=== PATIENT | male | born 1970 | race Caucasian/White ===

== ENCOUNTER → 2016-09-03 | Outpatient (CLI) | payer BC ==
--- NOTE | 2016-09-03 11:35 | REP ---
LEFT WRIST COMPLETE: 09/03/2016. Clinical history: Contusion, pain. Four views of the wrist show some soft tissue swelling distal forearm and dorsal wrist. Distal radius and ulna intact. Radiocarpal articulations unremarkable. The metacarpals and visualized MCP joints intact. The carpal articulations were unremarkable. I do not see any definite avulsion fracture. Impression: 1. Soft tissue swelling distal forearm and wrist dorsally without visible displaced fracture or avulsion. Signed by Walker Campbell MD 09/03/2016 07:34 P
--- NOTE | 2016-09-03 11:36 | REP ---
LEFT ELBOW SERIES COMPLETE: 09/03/2016. Comparison x-ray 09/16/2014, MRI of elbow 11/06/2015. Findings: Four views show no evidence of a joint effusion. The radial head and capitellum align normally without radial head fracture. Olecranon and proximal ulna intact. Distal humerus without supracondylar fracture. No abnormal soft-tissue calcification to suggest epicondylitis. No triceps avulsion. Impression: 1. No visible or displaced fracture, avulsion, joint effusion or other acute bony finding about the elbow. Signed by Walker Campbell MD 09/03/2016 07:34 P
== END ==
LOC: M ADAMS 08:55
PROVIDERS: ATTEND Physician Assistant Medical
DX: S50.02XA Contusion of left elbow, initial encounter (principal); S60.212A Contusion of left wrist, initial encounter; M25.432 Effusion, left wrist; X58.XXXA Exposure to other specified factors, initial encounter; Y93.9 Activity, unspecified; Y92.9 Unspecified place or not applicable; Y99.8 Other external cause status

== ENCOUNTER → 2016-10-26 | Outpatient (CLI) | payer BC ==
--- NOTE | 2016-10-26 11:52 | REP ---
TWO CHEST: COMPARISON: No comparison. There is no evidence of acute infiltrate. No pleural effusion is seen. The heart is normal in size. The mediastinal silhouette is unremarkable. The visualized osseous structures are intact. IMPRESSION: No acute pulmonary disease. Signed by Beny Corbett MD 10/26/2016 12:17 P
== END ==
LOC: M ADAMS 10:59
PROVIDERS: ATTEND Physician Assistant
DX: R05 Cough (principal)

== ENCOUNTER → 2017-12-19 | Outpatient (REF) | payer BC, OTHER ==
[2017-12-19 19:33] LABS: TESTOSTERONE 738 NG/DL (241-827)
== END ==
LOC: M LAB REF 17:37
DX: E29.1 Testicular hypofunction (principal)
CPT/HCPCS: 84403

== ENCOUNTER → 2018-01-10 | Outpatient (REF) | payer BC, OTHER ==
[2018-01-10 18:03] LABS: URIC ACID 6.5 MG/DL (3.5-7.2)
== END ==
LOC: M LAB REF 17:22
DX: M10.071 Idiopathic gout, right ankle and foot (principal)
CPT/HCPCS: 84550

== ENCOUNTER → 2018-06-21 | Outpatient (REF) | payer BC ==
[2018-06-21 18:31] LABS: TESTOSTERONE 219 NG/DL (241-827)
== END ==
LOC: M LAB REF 16:47
DX: E29.1 Testicular hypofunction (principal)
CPT/HCPCS: 84403

== ENCOUNTER → 2018-08-26 | Outpatient (CLI) | payer BC ==
--- NOTE | 2018-08-26 13:45 | REP ---
Clinical: Pain. Technique: AP and lateral views of the left tibia / fibula. Findings: Age-related changes to the knee and ankle joint. No acute fracture dislocation. Surrounding soft tissues are unremarkable. Impression: No acute fracture dislocation. No obvious pathology. Electronically Signed by Jaspal Parker MD 08/26/2018 01:36 P
--- NOTE | 2018-08-26 13:46 | REP ---
Clinical: Pain Technique: AP, lateral, bilateral oblique views left foot . Findings: The osseous structures and joint spaces are intact and essentially normal for age. There is no evidence for acute fracture or dislocation. Surrounding soft tissues are unremarkable. No subcutaneous emphysema or radiodense foreign body. Small calcaneal heal spur. Impression: No obvious acute pathology by radiographic evaluation. Electronically Signed by Jaspal Parker MD 08/26/2018 01:38 P
== END ==
LOC: M ADAMS 12:34
PROVIDERS: ATTEND Physician Assistant
DX: M79.662 Pain in left lower leg (principal); M79.672 Pain in left foot

== ENCOUNTER 2019-05-26 14:23 | Emergency (ER) | payer OTHER, BC ==
[~2019-05-26] VITALS: Ht 182.9 cm; Wt 135.6 kg
[2019-05-26] MEDS ORDERED: BUPR150T3 (14:31)
[2019-05-26] MEDS ORDERED: ESCI20TA (14:31)
[2019-05-26] MEDS ORDERED: VITA500045 (14:31)
[2019-05-26] MEDS ORDERED: IBUPROFEN 600 MG TAB PO ONE (15:15)
--- NOTE | 2019-05-26 15:46 | REP ---
Clinical: Pain. Trauma. Technique: Internal rotation, external rotation, and Y view right shoulder . Findings: No acute fracture or dislocation. The acromioclavicular and glenohumeral joints are intact. No periarticular calcifications or degenerative changes are appreciated. Sub acromial space is normal. Surrounding soft tissues are unremarkable. Impression: Normal right shoulder radiographs. Electronically Signed by Jaspal Parker MD 05/26/2019 03:37 P
[2019-05-26 16:12] VITALS: BP 132/82
== END 2019-05-26 16:24 | disposition home or self-care (01) ==
LOC: M ED 14:23
DX: S46.811A Strain of other muscles, fascia and tendons at shoulder and upper arm level, right arm, initial encounter (principal); X50.0XXA Overexertion from strenuous movement or load, initial encounter; Y92.89 Other specified places as the place of occurrence of the external cause; Y99.0 Civilian activity done for income or pay; F41.9 Anxiety disorder, unspecified; F32.9 Major depressive disorder, single episode, unspecified; Z79.899 Other long term (current) drug therapy

== ENCOUNTER 2019-08-14 13:18 | Day surgery (SDC) | payer OTHER ==
[~2019-08-14] VITALS: Ht 182.9 cm; Wt 137.5 kg
[~2019-08-14 13:18] MED LIST: BUPR150T3 PO; D 202000 PO; ESCI20TA PO; LR 1,000 ML IV ONE; TEST30SO3 TOP; VITA500045; VITA50005 PO; ceFAZolin SOD 2 GM in IV 1 EA IV ONE
[2019-08-14] MEDS ORDERED: dexameTHASONE 4 MG/ML 1ML VIAL (J1100) As Ordered ONE (16:52)
[2019-08-14] MEDS ORDERED: propofoL 200 MG/20 ML VIAL As Ordered ONE ×2 (16:52→19:38)
[2019-08-14] MEDS ORDERED: ONDANSETRON 4MG/2ML VIAL (J2405) As Ordered ONE (16:52)
[2019-08-14] MEDS ORDERED: SUGAMMADEX SODIUM 500 MG/5 ML VIAL (BRIDION) As Ordered ONE (16:52)
[2019-08-14] MEDS ORDERED: LIDOCAINE 2% INJ 100 MG/5 ML SDV (FOR ANES.) As Ordered ONE (16:52)
[2019-08-14] MEDS ORDERED: ROCURONIUM BROMIDE 50 MG/5 ML VIAL As Ordered ONE (16:52)
[2019-08-14] MEDS ORDERED: MIDAZOLAM INJ 2 MG/2 ML VIAL (J2250) As Ordered ONE ×2 (16:53→17:04)
[2019-08-14] MEDS ORDERED: fentaNYL 100 MCG/2 ML INJECTION (J3010) As Ordered ONE ×2 (16:53→17:04)
[2019-08-14] MEDS: fentaNYL 100 MCG/2 ML INJECTION (J3010) IV SCH ×2 (17:16→18:07)
[2019-08-14] MEDS: MIDAZOLAM INJ 2 MG/2 ML VIAL (J2250) IV SCH ×2 (17:16→17:19)
[2019-08-14] MEDS ORDERED: LIDOCAINE 1% SDV INJ 30 ML VIAL As Ordered ONE (17:43)
[2019-08-14] MEDS ORDERED: EPINEPHrine 1MG/ML INJ 30ML MD-VIAL As Ordered ONE (17:43)
[2019-08-14] MEDS ORDERED: fentaNYL 100 MCG/2 ML INJECTION (J3010) IV PRN ×2 (17:45→20:45)
[2019-08-14] MEDS ORDERED: ONDANSETRON 4MG/2ML VIAL (J2405) IV PRN ×2 (17:45→20:45)
[2019-08-14] MEDS ORDERED: METOCLOPRAMIDE INJ 10MG/2ML VIAL (J2765) IV PRN ×2 (17:45→20:45)
[2019-08-14] MEDS ORDERED: LR 1,000 ML IV SCH ×2 (17:45→20:45)
[2019-08-14] MEDS ORDERED: oxyCODONE 5MG TAB PO PRN ×2 (18:00)
[2019-08-14] MEDS ORDERED: ACETAMINOPHEN 1000MG 100ML IV BTL (OFIRMEV) (J0131 PER 10MG) As Ordered ONE (18:56)
[2019-08-14] MEDS ORDERED: MEPERIDINE INJ 25 MG/ML VIAL (J2175) IV PRN (20:45)
[2019-08-14] MEDS ORDERED: PERCOCET 5MG/325MG TAB PO PRN (20:45)
[2019-08-14 22:09] VITALS: BP 120/76
--- NOTE | 2019-08-14 22:50 | RO ---
DATE OF PROCEDURE: 08/14/2019 PREOPERATIVE DIAGNOSIS: Right partial thickness rotator cuff tear and superior labral tear from anterior to posterior (SLAP). POSTOPERATIVE DIAGNOSIS: Full thickness rotator cuff tear, SLAP. PROCEDURE: Right biceps tenodesis, acromioplasty, shoulder arthroscopy, distal clavicle excision, and rotator cuff repair. Loose body removal. SURGEON: Louis Wright MD NURSERYPERSON: LIYAH More, who was essential for suture management throughout the case and assistance in camera holding. ANESTHESIA: General. PREOPERATIVE ANTIBIOTICS: 2 grams of Ancef. ESTIMATED BLOOD LOSS: Minimal. COMPLICATIONS: None. INDICATION: This is a 49-year-old male that suffered traumatic injury and since that time has failed nonoperative modes of treatment. We discussed the risks and benefits of shoulder arthroscopy including but not limited to infection, damage to underlying structures, incomplete relief and patient wished to proceed. DESCRIPTION OF PROCEDURE: Patient was brought back to OR in the supine position and underwent general anesthesia, at which point the patient was placed in the beach chair position. Right arm was prepped and draped in the usual fashion. We had a time-out confirming site, side and surgery. Once in agreement, we made a stab incision in the posterior shoulder for the posterior feeding portal. Once we entered the glenohumeral joint we established our anterior portal and used a 7 x 7 flexible cannula. We then evaluated the SLAP tear, it had complete lifting of the labrum off the glenoid and irrigation of the biceps tendon itself. At that point, we used a FiberLink suture to tag the biceps tendon and used the burner to separate the bicep long head from the labrum. We then used the shaver to debride the labrum. 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 We evaluated the rotator cuff at this point, did not identify a full thickness tear, but did identify some fraying of the undersurface of the leading edge of the rotator cuff. It was at this point we encountered loose bodies within the joint. These were removed by a combination of grasper and shaver. At this point we used four or five [place] and did a biceps tenodesis at the proximal extent of the bicipital groove after prepping the area with curettes, burner and shaver. We then went into the subacromial space, the synovial debridement, did acromioplasty utilizing a burner and power rasp. At that point we also established our anterior portal in the subacromial space and did distal clavicle excision utilizing those tools, approximately 1.1 cm. We then evaluated the rotator cuff. At this point we identified small tear approximately 1 cm in the anterior leading edge. It was high grade partial thickness. We completed the tear. We then used a medial anchor with FiberTape after prepping the area with burner, shaver and curette. We passed both anterior and posterior limbs. We then did one lateral anchor under tension. Lateral repair was quite secure. We were very happy with this, so at this point we just debrided a little further utilizing shaver at which point we removed any of the fluid and closed the portals, we had an anterior, posterior and a lateral portal with #3-0 nylon. The patient was then awakened and taken to post anesthesia care unit (PACU) in stable condition. POSTOPERATIVE PLAN: The patient will work on pain control. Will see him at 2 week visit to work on subtle hand range of motion as this was a small tear. Will avoid any hyperlifting, but we progress him a little quicker with gentle active and active assisted range of motion.
--- NOTE | 2019-08-15 07:37 | ECGEPIP ---
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
== END 2019-08-14 22:40 | disposition home or self-care (01) ==
LOC: M SDC 13:18
PROVIDERS: ATTEND Orthopaedic Surgery Hand Surgery
DX: M75.111 Incomplete rotator cuff tear or rupture of right shoulder, not specified as traumatic (principal); S43.431A Superior glenoid labrum lesion of right shoulder, initial encounter; M10.9 Gout, unspecified; F41.9 Anxiety disorder, unspecified; F32.9 Major depressive disorder, single episode, unspecified; J45.909 Unspecified asthma, uncomplicated; G47.30 Sleep apnea, unspecified; Z87.891 Personal history of nicotine dependence; Y93.9 Activity, unspecified
CPT/HCPCS: 29823; 29824; 29826; 29827; 64415; 93005; C1713; J0131; J0690; J1100; J2250; J2405; J3010

== ENCOUNTER → 2020-05-12 | Outpatient (REF) | payer BC ==
[~2020-05-12] MED LIST changes: -LR 1,000 ML IV ONE; -ceFAZolin SOD 2 GM in IV 1 EA IV ONE
== END ==
LOC: M LAB REF 16:19
PROVIDERS: ATTEND Nurse Practitioner Adult Health
DX: E29.1 Testicular hypofunction (principal)

== ENCOUNTER → 2020-05-26 | Outpatient (REF) | payer BC | LOC: M LAB REF 11:39 | PROVIDERS: ATTEND Internal Medicine | DX: R73.09 Other abnormal glucose (principal) ==

== ENCOUNTER → 2020-11-13 | Outpatient (REF) | payer BC ==
[~2020-11-13] MED LIST changes: +BUPR150T12 PO; -BUPR150T3 PO; -ESCI20TA PO; +ESCI20TA16 PO
[2020-11-13 19:15] LABS: H PYLORI QUALITATIVE IgG NEGATIVE (NEGATIVE)
== END ==
LOC: M LAB REF 16:30
PROVIDERS: ATTEND Nurse Practitioner Adult Health
DX: R14.0 Abdominal distension (gaseous) (principal)

== ENCOUNTER → 2020-12-16 | Outpatient (REF) | payer BC ==
[2020-12-16 13:43] LABS: FREE T3 3.1 PG/ML (2.2-4.0)
[2020-12-16 13:51] LABS: THYROID PEROXIDASE ANTIBODY 367.9 U/ML (<60.0)
[2020-12-17 08:09] LABS: THRYOGLOBULIN ANTIBODIES (ATA) < 1.0 IU/mL (0.0-0.9); THYROGLOBULIN QUANTITATIVE 14.3 ng/mL (1.4-29.2)
== END ==
LOC: M LAB REF 12:15
PROVIDERS: ATTEND Nurse Practitioner Adult Health
DX: R94.6 Abnormal results of thyroid function studies (principal)

== ENCOUNTER → 2021-10-20 | Outpatient (CLI) | payer BC ==
[~2021-10-20] MED LIST changes: +ERGO500029 PO; -VITA50005 PO
== END ==
LOC: M LABSMTC 09:04
PROVIDERS: ATTEND Orthopaedic Surgery
DX: Z11.52 Encounter for screening for COVID-19 (principal)

== ENCOUNTER 2022-03-11 22:29 | Inpatient (IN) | payer BC ==
[~2022-03-11] VITALS: Ht 182.9 cm; Wt 127.3 kg
[2022-03-11] MEDS ORDERED: MORPHINE 4 MG/ML 1ML VIAL/SYRINGE IV ONE (23:45)
[2022-03-11] MEDS ORDERED: ONDANSETRON 4MG 2ML VIAL IV ONE (23:45)
[2022-03-11] MEDS ORDERED: NS 1,000 ML IV ONE (23:45)
[2022-03-12 00:20] LABS: BASO # 0.1 10^3/uL (0.0-0.2); BASO % 0.5 % (0.0-1.0); EOS # 0.1 10^3/uL (0.0-0.5); EOS % 1.3 % (0.0-3.0); HEMATOCRIT 45.9 % (42.0-52.0); HEMOGLOBIN 15.9 g/dl (13.5-17.5); LYMPH # 2.4 10^3/uL (1.5-5.0); LYMPH % 21.4 % (24.0-44.0); MEAN CORPUSCULAR HEMOGLOBIN 31.7 pg (27.0-33.0); MEAN CORPUSCULAR HGB CONC 34.6 g/dl (32.0-36.5); MEAN CORPUSCULAR VOLUME 91.4 fl (80.0-96.0); MONO # 0.9 10^3/uL (0.0-0.8); MONO % 7.9 % (2.0-8.0); NEUTROPHILS # 7.5 10^3/uL (1.5-8.5); NEUTROPHILS % 68.4 % (36.0-66.0); PLATELET COUNT, AUTOMATED 212 10^3/uL (150-450); RED BLOOD COUNT 5.02 10^6/uL (4.30-6.10)
[2022-03-12 00:48] LABS: ALBUMIN 3.8 GM/DL (3.2-5.2); ALT/SGPT 40 U/L (12-78); BILIRUBIN,TOTAL 1.6 MG/DL (0.2-1.0); BLOOD UREA NITROGEN 17 MG/DL (7-18); CALCIUM LEVEL 9.1 MG/DL (8.5-10.1); CARBON DIOXIDE LEVEL 25 MEQ/L (21-32); CHLORIDE LEVEL 106 MEQ/L (98-107); CREATININE FOR GFR 1.09 MG/DL (0.70-1.30); GLOMERULAR FILTRATION RATE > 60.0 (>56); GLUCOSE, FASTING 120 MG/DL (70-100); LIPASE 168 U/L (73-393); POTASSIUM SERUM 3.9 MEQ/L (3.5-5.1); SODIUM LEVEL 138 MEQ/L (136-145); TOTAL PROTEIN 7.4 GM/DL (6.4-8.2)
[2022-03-12 00:51] LABS: CK-MB VALUE MASS < 1.0 NG/ML (<3.6); CPK CREATINE PHOSPHOKINASE 121 U/L (39-308); MB/CK RELATIVE INDEX 0.83 (< OR =4)
[2022-03-12] MEDS ORDERED: PIPERACILLIN/TAZOBACTAM SOD 4.5 GM in D5W MINI-BAG PLUS 50 ML IV ONE (01:10)
[2022-03-12 02:09] LABS: RSV AMPLIFICATION NEGATIVE (NEGATIVE)
[2022-03-12] MEDS ORDERED: FAMO40TA3 PO (03:32)
[2022-03-12] MEDS ORDERED: LEXA1TAB2 PO (03:32)
[2022-03-12] MEDS ORDERED: SYNT50TA PO (03:32)
[2022-03-12] MEDS ORDERED: ALPR0.25 PO (03:32)
[2022-03-12] MEDS ORDERED: ALBU8.5H INH (03:32)
[2022-03-12] MEDS ORDERED: IBUP200C28 PO (03:32)
[2022-03-12] MEDS: MORPHINE 4 MG/ML 1ML VIAL/SYRINGE IV PRN ×5 (03:35→20:41)
[2022-03-12] MEDS ORDERED: HOME MED LIST COMPLETE! XX SCH (03:35)
[2022-03-12] MEDS ORDERED: ALPRAZolam 0.25 MG TAB PO PRN (04:15)
[2022-03-12] MEDS ORDERED: ALBUTEROL 90 MCG/ACT 8GM HFA INHALER INH PRN (04:15)
[2022-03-12 04:23] VITALS: BP 152/79
[2022-03-12] MEDS: LEVOTHYROXINE 50MCG TABLET (0.05MG) PO SCH (05:48)
[2022-03-12] MEDS: NS 1,000 ML IV SCH ×4 (05:48→23:48)
[2022-03-12] MEDS: PANTOPRAZOLE 40MG VIAL IV SCH (08:17)
[2022-03-12] MEDS: HEPARIN SOD (PORCINE) 5000UNITS/ML 1ML VIAL/SYRINGE SC SCH ×2 (08:17→20:40)
[2022-03-12] MEDS: buPROPion **XL** TABLET 150MG (WELLBUTRIN XL) PO SCH (08:18)
[2022-03-12] MEDS: ESCITALOPRAM OXALATE 10 MG TAB (LEXAPRO) PO SCH (08:18)
[2022-03-12 08:32] LABS: ALBUMIN 3.5 GM/DL (3.2-5.2); ALT/SGPT 34 U/L (12-78); BILIRUBIN,TOTAL 2.8 MG/DL (0.2-1.0); BLOOD UREA NITROGEN 15 MG/DL (7-18); CALCIUM LEVEL 8.1 MG/DL (8.5-10.1); CARBON DIOXIDE LEVEL 25 MEQ/L (21-32); CHLORIDE LEVEL 106 MEQ/L (98-107); GLOMERULAR FILTRATION RATE > 60.0 (>56); GLUCOSE, FASTING 116 MG/DL (70-100); POTASSIUM SERUM 4.2 MEQ/L (3.5-5.1); SODIUM LEVEL 135 MEQ/L (136-145); TOTAL PROTEIN 6.6 GM/DL (6.4-8.2)
[2022-03-12 10:18] LABS: BILIRUBIN,DIRECT 0.4 MG/DL (0.0-0.2)
[2022-03-12 14:00] VITALS: BP 113/69
[2022-03-12 21:56] VITALS: BP 119/72
[2022-03-13] MEDS: MORPHINE 4 MG/ML 1ML VIAL/SYRINGE IV PRN ×2 (00:46→05:28)
[2022-03-13] MEDS: LEVOTHYROXINE 50MCG TABLET (0.05MG) PO SCH (05:21)
[2022-03-13 06:00] VITALS: BP 118/74
[2022-03-13] MEDS ORDERED: HYDROMORPHONE HCL 0.5 MG/ 0.5 ML SYRINGE (J1170 PER 1) IV ONE (07:35)
[2022-03-13] MEDS ORDERED: KETOROLAC 30 MG/ML 1ML VIAL IV ONE (07:35)
[2022-03-13] MEDS ORDERED: METOCLOPRAMIDE INJ 10MG/2ML VIAL (J2765 PER 1) IV ONE (07:35)
[2022-03-13 07:48] LABS: BASO # 0.1 10^3/uL (0.0-0.2); BASO % 0.8 % (0.0-1.0); EOS # 0.2 10^3/uL (0.0-0.5); EOS % 2.2 % (0.0-3.0); HEMATOCRIT 44.2 % (42.0-52.0); HEMOGLOBIN 14.6 g/dl (13.5-17.5); LYMPH # 1.9 10^3/uL (1.5-5.0); LYMPH % 26.3 % (24.0-44.0); MEAN CORPUSCULAR HEMOGLOBIN 31.1 pg (27.0-33.0); MEAN CORPUSCULAR VOLUME 94.2 fl (80.0-96.0); MONO # 0.6 10^3/uL (0.0-0.8); MONO % 8.6 % (2.0-8.0); NEUTROPHILS # 4.5 10^3/uL (1.5-8.5); NEUTROPHILS % 61.7 % (36.0-66.0); PLATELET COUNT, AUTOMATED 168 10^3/uL (150-450); RED BLOOD COUNT 4.69 10^6/uL (4.30-6.10); WHITE BLOOD COUNT 7.2 10^3/uL (4.0-10.0)
[2022-03-13] MEDS ORDERED: NS 500 ML IV ONE (08:00)
[2022-03-13] MEDS: buPROPion **XL** TABLET 150MG (WELLBUTRIN XL) PO SCH (08:04)
[2022-03-13] MEDS: ESCITALOPRAM OXALATE 10 MG TAB (LEXAPRO) PO SCH (08:04)
[2022-03-13 08:09] LABS: ERYTHROCYTE SEDIMENTATION RATE 21 mm/hr (0-20)
[2022-03-13 08:27] LABS: ALBUMIN 3.4 GM/DL (3.2-5.2); ALT/SGPT 31 U/L (12-78); AMYLASE 35 U/L (25-115); BILIRUBIN,TOTAL 2.9 MG/DL (0.2-1.0); BLOOD UREA NITROGEN 10 MG/DL (7-18); C REACTIVE PROTEIN QUANTITATIV 7.71 MG/DL (0.00-0.30); CALCIUM LEVEL 8.6 MG/DL (8.5-10.1); CARBON DIOXIDE LEVEL 28 MEQ/L (21-32); CHLORIDE LEVEL 104 MEQ/L (98-107); CREATININE FOR GFR 1.03 MG/DL (0.70-1.30); GLOMERULAR FILTRATION RATE > 60.0 (>56); GLUCOSE, FASTING 111 MG/DL (70-100); LIPASE 152 U/L (73-393); SODIUM LEVEL 135 MEQ/L (136-145); TOTAL PROTEIN 6.3 GM/DL (6.4-8.2)
[2022-03-13] MEDS ORDERED: KCL 10MEQ IN D5/0.45NS 1000ML 1,000 ML IV SCH (09:00)
[2022-03-13] MEDS: PANTOPRAZOLE 40MG VIAL IV SCH (09:48)
[2022-03-13 10:45] VITALS: BP 124/73
[2022-03-13] MEDS ORDERED: INDOCYANINE GREEN 25MG VIAL (IC-GREEN) As Ordered ONE (11:39)
[2022-03-13] MEDS ORDERED: LIDOCAINE 1% SDV 30ML VIAL As Ordered ONE (11:40)
[2022-03-13] MEDS ORDERED: BUPIVACAINE HCL 0.25% 30ML VIAL As Ordered ONE (11:40)
[2022-03-13] MEDS ORDERED: UNASYN 3GM VIAL As Ordered ONE (12:13)
[2022-03-13] MEDS ORDERED: ePHEDrine SULFATE 25 MG/5 ML(5MG/ML) SYRINGE As Ordered ONE (12:22)
[2022-03-13] MEDS ORDERED: ACETAMINOPHEN 1000MG 100ML IV BTL (OFIRMEV) (J0131 PER 10MG) As Ordered ONE (12:24)
[2022-03-13] MEDS ORDERED: GLYCOPYRROLATE INJ 0.2 MG/ML 2 ML VIAL As Ordered ONE (12:28)
[2022-03-13] MEDS ORDERED: ROCURONIUM BROMIDE 50 MG/5 ML VIAL As Ordered ONE ×2 (12:33→12:41)
[2022-03-13] MEDS ORDERED: MIDAZOLAM INJ 2MG/2ML VIAL (J2250 PER 1MG) As Ordered ONE (12:41)
[2022-03-13] MEDS ORDERED: METOCLOPRAMIDE INJ 10MG/2ML VIAL (J2765 PER 1) As Ordered ONE (12:41)
[2022-03-13] MEDS ORDERED: ONDANSETRON 4MG 2ML VIAL As Ordered ONE (12:41)
[2022-03-13] MEDS ORDERED: KETOROLAC 60MG 2ML VIAL As Ordered ONE (12:41)
[2022-03-13] MEDS ORDERED: dexameTHASONE 4 MG/ML 1ML VIAL (J1100 PER 1MG) As Ordered ONE (12:41)
[2022-03-13] MEDS ORDERED: propofoL 200 MG/20 ML VIAL As Ordered ONE ×2 (12:41→13:24)
[2022-03-13] MEDS ORDERED: fentaNYL 250 MCG/5 ML INJECTION As Ordered ONE (12:41)
[2022-03-13] MEDS ORDERED: LIDOCAINE 2% 100MG/5ML SDV (FOR ANES.) As Ordered ONE (12:41)
[2022-03-13] MEDS ORDERED: SUGAMMADEX SODIUM 500 MG/5 ML VIAL (BRIDION) As Ordered ONE (13:24)
[2022-03-13] MEDS ORDERED: oxyCODONE 5MG TAB PO PRN (14:20)
[2022-03-13] MEDS ORDERED: fentaNYL 100 MCG/2 ML INJECTION IV PRN (14:20)
[2022-03-13] MEDS ORDERED: LR 1,000 ML IV SCH (14:20)
[2022-03-13] MEDS ORDERED: ONDANSETRON 4MG 2ML VIAL IV PRN (14:20)
[2022-03-13] MEDS ORDERED: MORPHINE 2 MG/ML 1ML VIAL IV PRN (14:20)
[2022-03-13 15:45] VITALS: BP 128/79
[2022-03-13] MEDS ORDERED: SENOKOT S TAB PO PRN (16:10)
[2022-03-13] MEDS ORDERED: NORCO, ANEXSIA 5/325MG TABLET (HYDROcodone/ACETAMINOPHEN) PO PRN ×2 (16:10)
[2022-03-13] MEDS ORDERED: MORPHINE 4 MG/ML 1ML VIAL/SYRINGE IV PRN (16:10)
[2022-03-13] MEDS ORDERED: MOM 30ML SUSPENSION UDC PO PRN (16:10)
[2022-03-13] MEDS ORDERED: BISACODYL 5 MG TAB PO PRN (16:10)
[2022-03-13 17:15] VITALS: BP 123/54
[2022-03-13] MEDS: LACTOBACILLUS ACIDOPHILUS CAP (BACID) PO SCH (17:17)
[2022-03-13] MEDS: NS 1,000 ML IV SCH (17:17)
[2022-03-13] MEDS: AMPICILLIN SOD/SULBACTAM SOD 3 GM in D5W MINI-BAG PLUS 100 ML IV SCH (17:17)
[2022-03-13 18:15] VITALS: BP 126/56
[2022-03-13] MEDS: KETOROLAC 30 MG/ML 1ML VIAL IV SCH (20:03)
[2022-03-13 22:00] VITALS: BP 122/59
[2022-03-14] MEDS: AMPICILLIN SOD/SULBACTAM SOD 3 GM in D5W MINI-BAG PLUS 100 ML IV SCH ×3 (01:02→12:05)
[2022-03-14] MEDS: KETOROLAC 30 MG/ML 1ML VIAL IV SCH ×3 (01:04→14:00)
[2022-03-14] MEDS: NS 1,000 ML IV SCH (04:40)
[2022-03-14] MEDS: LEVOTHYROXINE 50MCG TABLET (0.05MG) PO SCH (04:57)
[2022-03-14 05:58] VITALS: BP 109/61
[2022-03-14 06:18] LABS: BASO % 0.4 % (0.0-1.0); EOS # 0.1 10^3/uL (0.0-0.5); EOS % 0.8 % (0.0-3.0); HEMATOCRIT 42.5 % (42.0-52.0); HEMOGLOBIN 13.6 g/dl (13.5-17.5); LYMPH # 1.4 10^3/uL (1.5-5.0); LYMPH % 14.2 % (24.0-44.0); MEAN CORPUSCULAR HEMOGLOBIN 30.7 pg (27.0-33.0); MEAN CORPUSCULAR VOLUME 95.9 fl (80.0-96.0); MONO # 0.7 10^3/uL (0.0-0.8); MONO % 6.8 % (2.0-8.0); NEUTROPHILS # 7.6 10^3/uL (1.5-8.5); NEUTROPHILS % 77.4 % (36.0-66.0); PLATELET COUNT, AUTOMATED 173 10^3/uL (150-450); RED BLOOD COUNT 4.43 10^6/uL (4.30-6.10); WHITE BLOOD COUNT 9.8 10^3/uL (4.0-10.0)
[2022-03-14 07:06] LABS: ALBUMIN 3.1 GM/DL (3.2-5.2); ALT/SGPT 38 U/L (12-78); BILIRUBIN,TOTAL 1.6 MG/DL (0.2-1.0); BLOOD UREA NITROGEN 10 MG/DL (7-18); CALCIUM LEVEL 8.6 MG/DL (8.5-10.1); CARBON DIOXIDE LEVEL 26 MEQ/L (21-32); CHLORIDE LEVEL 107 MEQ/L (98-107); CREATININE FOR GFR 0.94 MG/DL (0.70-1.30); GLOMERULAR FILTRATION RATE > 60.0 (>56); GLUCOSE, FASTING 112 MG/DL (70-100); POTASSIUM SERUM 4.6 MEQ/L (3.5-5.1); SODIUM LEVEL 138 MEQ/L (136-145); TOTAL PROTEIN 6.1 GM/DL (6.4-8.2)
[2022-03-14] MEDS: LACTOBACILLUS ACIDOPHILUS CAP (BACID) PO SCH (08:07)
[2022-03-14] MEDS: ESCITALOPRAM OXALATE 10 MG TAB (LEXAPRO) PO SCH (08:08)
[2022-03-14] MEDS: buPROPion **XL** TABLET 150MG (WELLBUTRIN XL) PO SCH (08:08)
[2022-03-14] MEDS ORDERED: BACITAB PO (13:29)
[2022-03-14] MEDS ORDERED: AMOX875T2 PO (13:29)
[2022-03-14] MEDS ORDERED: PERC5TAB12 PO (13:29)
[2022-03-14] MEDS ORDERED: SENO8.6T10 PO (13:29)
== END 2022-03-14 15:50 | disposition home or self-care (01) | DRG 263 ==
LOC: M ED 22:29 → M ED INP 03-12 03:25 → M MS5PR 03-12 04:38
PROVIDERS: ADMIT Family Medicine; ATTEND General Practice
PROC: 8E0W4CZ Robotic Assisted Procedure of Trunk Region, Percutaneous Endoscopic Approach (ICD-10-PCS; 2022-03-13)
PROC: BF5C200 Other Imaging of Hepatobiliary System, All using Fluorescing Agent, Indocyanine Green Dye, Intraoperative (ICD-10-PCS; 2022-03-13)
PROC: 0FT44ZZ Resection of Gallbladder, Percutaneous Endoscopic Approach (ICD-10-PCS; principal; 2022-03-13 10:00)
DX: K80.00 Calculus of gallbladder with acute cholecystitis without obstruction (principal); E87.1 Hypo-osmolality and hyponatremia; E03.9 Hypothyroidism, unspecified; G47.33 Obstructive sleep apnea (adult) (pediatric); K21.9 Gastro-esophageal reflux disease without esophagitis; M10.9 Gout, unspecified; J45.909 Unspecified asthma, uncomplicated; F41.9 Anxiety disorder, unspecified; F32.A Depression, unspecified; E66.9 Obesity, unspecified; Z87.442 Personal history of urinary calculi; Z79.890 Hormone replacement therapy; Z79.899 Other long term (current) drug therapy; Z87.891 Personal history of nicotine dependence; Z68.38 Body mass index [BMI] 38.0-38.9, adult

== ENCOUNTER → 2022-05-23 | Outpatient (REF) | payer BC ==
[~2022-05-23] MED LIST changes: +ALBU8.5H INH; +ALPR0.25 PO; +AMOX875T2 PO; +BACITAB PO; +FAMO40TA3 PO; +IBUP200C28 PO; +LEXA1TAB2 PO; +PERC5TAB12 PO; +SENO8.6T10 PO; +SYNT50TA PO
== END ==
LOC: M LAB REF 17:30
PROVIDERS: ATTEND Nurse Practitioner Adult Health
DX: E29.1 Testicular hypofunction (principal)

== ENCOUNTER → 2023-01-03 | Outpatient (REF) | payer BC ==
[2023-01-03 18:05] LABS: FREE T3 3.5 PG/ML (2.3-4.2)
== END ==
LOC: M LAB REF 16:42
PROVIDERS: ATTEND Nurse Practitioner Adult Health
DX: E03.9 Hypothyroidism, unspecified (principal)

== ENCOUNTER → 2023-05-16 | Outpatient (REF) | payer BC | LOC: M LAB REF 16:23 | PROVIDERS: ATTEND Nurse Practitioner Adult Health | DX: E29.1 Testicular hypofunction (principal) ==

== ENCOUNTER → 2024-04-11 | Outpatient (REF) | payer BC | LOC: M LAB REF 17:00 | PROVIDERS: ATTEND Nurse Practitioner Adult Health | DX: E29.1 Testicular hypofunction (principal) ==

== ENCOUNTER → 2024-10-16 | Outpatient (REF) | payer BC | LOC: M SFHCDERM 16:40 | PROVIDERS: ATTEND Physician Assistant | DX: C44.92 Squamous cell carcinoma of skin, unspecified (principal) ==

== ENCOUNTER → 2025-01-28 | Outpatient (REF) | payer BC | LOC: M LAB REF 17:24 | PROVIDERS: ATTEND Otolaryngology | DX: H66.91 Otitis media, unspecified, right ear (principal) ==

== ENCOUNTER 2025-03-03 08:30 | Emergency (ER) | payer BC ==
[~2025-03-03] VITALS: Ht 182.9 cm; Wt 117.4 kg
[2025-03-03] MEDS ORDERED: ISOVUE-370 76% 100 ML VIAL As Ordered ONE (11:41)
[2025-03-03] MEDS: ACETAMINOPHEN *IV* 1,000 MG in IV 1 EA IV ONE (11:42)
[2025-03-03] MEDS: NS (Normal Saline) 0.9% 1,000 ML IV ONE (11:42)
[2025-03-03 12:07] LABS: BASO # 0.0 10^3/uL (0.0-0.2); BASO % 0.6 % (0.0-1.0); EOS # 0.1 10^3/uL (0.0-0.5); EOS % 2.2 % (0.0-3.0); LYMPH # 1.9 10^3/uL (1.5-5.0); LYMPH % 30.8 % (24.0-44.0); MONO # 0.5 10^3/uL (0.0-0.8); MONO % 8.0 % (2.0-8.0); NEUTROPHILS # 3.7 10^3/uL (1.5-8.5); NEUTROPHILS % 58.2 % (36.0-66.0); PLATELET COUNT, AUTOMATED 229 10^3/uL (150-450)
[2025-03-03 12:20] LABS: INR 0.97
[2025-03-03 12:33] LABS: ALT/SGPT 32 U/L (7.0-40); AST/SGOT 31 U/L (<34); CALCIUM LEVEL 9.1 MG/DL (8.5-10.1); CARBON DIOXIDE LEVEL 27 MMOL/L (20-31); CHLORIDE LEVEL 104 MMOL/L (98-107); CREATININE FOR GFR 0.88 MG/DL (0.70-1.30); GLOMERULAR FILTRATION RATE > 90.0 (>56); POTASSIUM SERUM 4.8 MMOL/L (3.5-5.1); SODIUM LEVEL 141 MMOL/L (136-145)
[2025-03-03 13:50] VITALS: BP 158/81; TEMP 97.4; O2SAT 97
== END 2025-03-03 13:51 | disposition home or self-care (01) ==
LOC: M ED 08:30
DX: R11.10 Vomiting, unspecified (principal); K76.0 Fatty (change of) liver, not elsewhere classified; K43.9 Ventral hernia without obstruction or gangrene; K21.9 Gastro-esophageal reflux disease without esophagitis; E03.9 Hypothyroidism, unspecified; G47.33 Obstructive sleep apnea (adult) (pediatric)
CPT/HCPCS: 74177; 80047; 80048; 80076; 83605; 83690; 85025; 85610; 85730; 93041; 96374; 99284; J0131; Q9967

== ENCOUNTER 2025-05-05 06:01 | Day surgery (SDC) | payer BC ==
[~2025-05-05] VITALS: Ht 182.9 cm; Wt 116.9 kg
[~2025-05-05 06:01] MED LIST changes: +BUPR-766 PO; +FLUTISP; +SEMA1PEN4
[2025-05-05] MEDS: LR 1,000 ML IV SCH (06:51)
[2025-05-05] MEDS ORDERED: LIDOCAINE 2% 100 MG/5 ML SDV (FOR ANES.) As Ordered ONE (06:52)
[2025-05-05] MEDS ORDERED: MIDAZOLAM INJ 2 MG/2 ML VIAL As Ordered ONE (06:52)
[2025-05-05] MEDS ORDERED: ROCURONIUM BROMIDE 50MG/5ML VIAL As Ordered ONE (06:52)
[2025-05-05] MEDS ORDERED: dexAMETHasone 4 MG/ML 1 ML VIAL As Ordered ONE (06:53)
[2025-05-05] MEDS ORDERED: ACETAMINOPHEN 1000MG/100ML IV BAG As Ordered ONE (07:07)
[2025-05-05] MEDS: ceFAZolin SOD 2 GM IV ONCE IV ONE (07:40)
[2025-05-05] MEDS: HEPARIN SOD 5000 UNITS/ML 1 ML VIAL/SYRINGE SQ ONE (08:00)
[2025-05-05] MEDS ORDERED: ONDANSETRON 4MG 2ML VIAL As Ordered ONE (08:18)
[2025-05-05] MEDS ORDERED: KETOROLAC 30 MG/ML 1 ML VIAL As Ordered ONE (08:18)
[2025-05-05] MEDS ORDERED: SUGAMMADEX SODIUM 500 MG/5 ML VIAL As Ordered ONE (08:29)
[2025-05-05] MEDS ORDERED: ONDANSETRON 4MG 2ML VIAL IV PRN (09:45)
[2025-05-05] MEDS: MORPHINE 4 MG/ML 1 ML VIAL IV PRN (09:49)
[2025-05-05 10:45] VITALS: BP 128/67; TEMP 97.4; O2SAT 96
== END 2025-05-05 11:43 | disposition home or self-care (01) ==
LOC: M SDC 06:01
PROVIDERS: ATTEND Surgery
DX: K43.2 Incisional hernia without obstruction or gangrene (principal); E03.9 Hypothyroidism, unspecified; R73.03 Prediabetes; M10.9 Gout, unspecified; K21.9 Gastro-esophageal reflux disease without esophagitis; G47.30 Sleep apnea, unspecified; K76.0 Fatty (change of) liver, not elsewhere classified; Z79.899 Other long term (current) drug therapy; Z79.890 Hormone replacement therapy; F32.A Depression, unspecified; F41.9 Anxiety disorder, unspecified
CPT/HCPCS: 49591; 93005; C1781; J0131; J0665; J0688; J1100; J1885; J2250; J2405; J3010; S2900